=== PATIENT | female | born 1945 | race Caucasian/White ===

== ENCOUNTER → 2016-10-18 | Outpatient (CLI) | payer BC, MEDICARE ==
--- NOTE | 2016-10-18 12:22 | MR ---
EXAMINATION TYPE: MR cervical spine wo/w con DATE OF EXAM: 10/18/2016 10:55 AM COMPARISON: Prior MR cervical spine 28 March 2014, 18 September 2015 HISTORY: meningoma, surgery, neck pain TECHNIQUE: Multiplanar, multisequence images of the cervical spine were acquired utilizing 15 mL intravenous Mul tiHance gadolinium contrast. Diffusion weighted imaging was performed. Cervical vertebral bodies show preserved stable height, alignment, and bone marrow signal. Multilevel spondylosis with associated loss of disc height and signal present at C5-6, C6-C7, endplate discogen ic marrow signal change. Cervical cord signal, cervical medullary junction are unchanged. Postop singh ge at the posterior aspect of C1 is again noted. No recurrent mass or abnormal enhancement. C2-C3: Stable, no significant central canal stenosis. C3-C4: Stable, no significant interval change C4-C5: Small posterior central disc herniation may contact the anterior cervical cord, similar to lisa or exam C5-C6: Posterior extension endplate disc bulge may contact the anterior cervical cord, bilateral fora jerica encroachment is again noted, there is mild central canal stenosis. C6-C7: Posterior broad-based disc bulge, endplate disc complex causes minimal anterior mass effect on the thecal sac. Similar foraminal encroachment prior exam. C7-T1: Essentially stable. IMPRESSION: Stable findings, no recurrent meningioma. Degenerative disc disease.
== END | disposition home or self-care (01) ==
LOC: RADMRIMAIN 10:07
PROVIDERS: ATTEND Neurological Surgery
DX: M50.30 Other cervical disc degeneration, unspecified cervical region (principal)
CPT/HCPCS: 72156; A9577

== ENCOUNTER → 2016-10-24 | Outpatient (CLI) | payer BC, MEDICARE ==
[2016-10-24 12:52] LABS: Calcium 9.7 mg/dL (8.4-10.2); Phosphorous 3.4 mg/dL (2.5-4.5); Potassium 4.7 mmol/L (3.5-5.1)
== END | disposition home or self-care (01) ==
LOC: LABWHC1 12:06
PROVIDERS: ATTEND Pediatrics
DX: E87.6 Hypokalemia (principal); E83.51 Hypocalcemia; E83.42 Hypomagnesemia
CPT/HCPCS: 36415; 80051; 82310; 83735; 84100

== ENCOUNTER → 2016-11-25 | Outpatient (CLI) | payer BC, MEDICARE ==
[2016-11-25 11:54] LABS: Calcium 9.9 mg/dL (8.4-10.2); Potassium 4.6 mmol/L (3.5-5.1)
== END | disposition home or self-care (01) ==
LOC: LABWHC1 10:52
PROVIDERS: ATTEND Pediatrics
DX: E83.51 Hypocalcemia (principal); E83.42 Hypomagnesemia; E87.6 Hypokalemia
CPT/HCPCS: 36415; 80051; 82310; 83735

== ENCOUNTER → 2017-01-07 | Outpatient (CLI) | payer BC, MEDICARE ==
[2017-01-07 11:03] LABS: ALT 31 U/L (9-52); AST 21 U/L (14-36); Alkaline Phosphatase 72 U/L (38-126); Anion Gap 11 mmol/L; Blood Urea Nitrogen 19 mg/dL (7-17); Calcium 9.8 mg/dL (8.4-10.2); Carbon Dioxide 27 mmol/L (22-30); Chloride 107 mmol/L (98-107); Cholesterol 160 mg/dL (<200); Glucose 105 mg/dL (74-99); HDL Cholesterol 94 mg/dL (40-60); Non-African American GFR(MDRD) >60 (>60 ml/min/1.73 sqM); Sodium 145 mmol/L (137-145); Total Protein 6.3 g/dL (6.3-8.2); Triglycerides 160 mg/dL (<150)
== END | disposition home or self-care (01) ==
LOC: LABWHC1 10:08
PROVIDERS: ATTEND Internal Medicine Interventional Cardiology
DX: E78.2 Mixed hyperlipidemia (principal); E87.6 Hypokalemia; E83.42 Hypomagnesemia
CPT/HCPCS: 36415; 80053; 80061; 83735

== ENCOUNTER → 2017-06-11 | Outpatient (CLI) | payer BC, MEDICARE ==
--- NOTE | 2017-06-11 15:32 | CT ---
EXAMINATION TYPE: CT abdomen pelvis w con DATE OF EXAM: 06/11/2017 HISTORY: Pelvic pain and stomach ache x 6 weeks per patient. Unspecified abdominal pain (R 10.9) per order. CT DLP: 1361.00mGycm Automated Exposure Control for Dose Reduction was Utilized. CONTRAST: CT scan of the abdomen and pelvis is performed with IV Contrast, patient injected with 100 mL of Omni paque 300. COMPARISON: CT abdomen and pelvis September 16, 2010 FINDINGS: LUNG BASES: Cardiomegaly is redemonstrated. There is persistent severe left atrial and moderate left ventricular dilatation redemonstrated. There is stable 4 mm nodule in the right lung base on axial im age 16. LIVER/GB: Subcentimeter nodules lung periphery of gallbladder felt to reflect several small polyps. In the right hepatic lobe posterior segment there is 1.5 x 1.4 cm peripheral nodular enhancing mass w ith progressive centripetal filling consistent with hemangioma redemonstrated. Subcentimeter hypodens e lesion right hepatic dome posterior aspect on axial image 13 is stable and benign. PANCREAS: No significant abnormality is seen. SPLEEN: There are several hypodense lesions scattered throughout the spleen that become isodense on d elayed phased images, lesions of uncertain etiology but favored benign. They are not clearly seen on prior noncontrast CT. Somewhat present on May 2010 contrast-enhanced abdominal CT or slightly more prominent in size and number versus this study. Still favor benign process or etiology. ADRENALS: No significant abnormality is seen. KIDNEYS: There are multiple simple appearing cysts scattered throughout the visualized left kidney. T here is a dominant exophytic cyst lower pole level right kidney with lobulation and suspected thin se ptation anteriorly measuring 10.8 x 9.5 cm on axial image 45 redemonstrated. There is bladder prolaps e seen best on coronal image 57 redemonstrated with more inferior extension or prolapse seen on curre nt study. BOWEL: No suspicious small or large bowel dilatation is present. Slightly suspicious lobulated soft tissue directly normal junction is seen on axial image 82, correlation with direct digital rectal exa m advised to rule out mass at this level. Air-contrast level is noted just proximal to this. UTERUS/ADNEXA: Uterus is surgically absent. LYMPH NODES: No greater than 1cm abdominal or pelvic lymph nodes are appreciated. OSSEOUS STRUCTURES: No significant abnormality is seen. OTHER: No significant additional abnormality is seen. IMPRESSION: 1. No bowel obstruction is seen. 2. Note is made of increasing or more prominent bladder prolapse. 3. Attention to rectal anal junction as detailed above.
== END | disposition home or self-care (01) ==
LOC: RADCTMAIN 12:37
PROVIDERS: ATTEND Family Medicine
DX: N81.10 Cystocele, unspecified (principal)
CPT/HCPCS: 74177; Q9967

== ENCOUNTER → 2017-07-14 | Outpatient (CLI) | payer BC, MEDICARE ==
[2017-07-14 10:16] LABS: ALT 43 U/L (9-52); AST 24 U/L (14-36); Alkaline Phosphatase 80 U/L (38-126); Anion Gap 10 mmol/L; Blood Urea Nitrogen 19 mg/dL (7-17); Calcium 9.5 mg/dL (8.4-10.2); Carbon Dioxide 28 mmol/L (22-30); Chloride 106 mmol/L (98-107); Cholesterol 135 mg/dL (<200); Glucose 98 mg/dL (74-99); HDL Cholesterol 79 mg/dL (40-60); Non-African American GFR(MDRD) >60 (>60 ml/min/1.73 sqM); Potassium 3.9 mmol/L (3.5-5.1); Sodium 144 mmol/L (137-145); Total Bilirubin 0.8 mg/dL (0.2-1.3); Total Protein 6.4 g/dL (6.3-8.2)
== END | disposition home or self-care (01) ==
LOC: LABWHC1 09:38
PROVIDERS: ATTEND Internal Medicine Interventional Cardiology
DX: E78.2 Mixed hyperlipidemia (principal); I42.9 Cardiomyopathy, unspecified
CPT/HCPCS: 36415; 80053; 80061; 83735

== ENCOUNTER → 2017-11-03 | Outpatient (CLI) | payer BC, MEDICARE ==
[2017-11-03 12:49] LABS: Blood Urea Nitrogen 20 mg/dL (7-17)
--- NOTE | 2017-11-04 17:58 | MR ---
MRI CERVICAL SPINE: CLINICAL HISTORY: Benign neoplasm of spinal meninges per order. Spinal meningioma. History of prior s urgery. Occasional left-sided neck pain with occasional pain or weakness in both arms per patient. TECHNIQUE: Multiplanar, multisequence imaging of the cervical spine is performed without and with IV contrast, 7 cc of gadolinium was given intravenously. COMPARISON: Prior MRI cervical spine October 18, 2016 FINDINGS: Coronal images redemonstrate levoconvex scoliotic positioning centered in the upper thoraci c spine. Motion artifact degradation is seen particularly on T1 postcontrast sagittal images. Sagitta l images of the cervical spine show the craniocervical junction to appear within normal limits. The cervical and upper thoracic spinal cord remains normal in course, caliber, and signal. Vertebral ali gnment is anatomic. The vertebral body heights are normal. There is mild to moderate disc space madison rowing C5-C6 and C6-C7 levels redemonstrated with small posterior disc herniation is seen at these le vels on sagittal images. The bone marrow signal intensity remains within normal limits. No suspicious enhancement is seen. Postsurgical change posterior C1 level is redemonstrated with pseudomeningocele appearance of the spinal canal at this level. Axial images show the C2-C3 and C3-C4 levels remain within normal limits. Axial images at C4-C5 level redemonstrates small central disc protrusion mildly effacing the anterior thecal sac and axial image 28, there are uncovertebral facet degenerative changes bilaterally but bi lateral neural foramina remain patent. No significant change from prior. Axial images at C5-C6 level broad-based posterior disc protrusion effacing the anterior thecal sac an d causing mild to moderate left and mild right-sided neural foraminal narrowing. No significant buck e from prior study is seen. Axial images at C6-C7 level shows broad-based posterior disc protrusion mildly effacing the anterior thecal sac and causing mild left-sided anterior inferior neural foraminal narrowing. Right-sided neur al foramen is patent. No significant change from prior. Axial images at C7-T1 level are felt within normal limits. IMPRESSION: Multilevel degenerative changes as detailed above without significant change from prior s tudy. No new suspicious enhancing intradural mass identified.
== END | disposition home or self-care (01) ==
LOC: RADMRIMAIN 12:11
PROVIDERS: ATTEND Neurological Surgery
DX: M48.02 Spinal stenosis, cervical region (principal); M50.221 Other cervical disc displacement at C4-C5 level; D32.1 Benign neoplasm of spinal meninges
CPT/HCPCS: 82565; 84520; 72156; 36415; A9581

== ENCOUNTER 2017-12-19 21:52 | Emergency (ER) | payer BC, MEDICARE ==
[2017-12-19] MEDS ORDERED: SILVER NITRATE APPLICATOR 1 EACH STICK..EA. TOPICAL STA (22:23)
[2017-12-19] MEDS ORDERED: OXYMETAZOLINE 0.05% NASL SPRAY 1 SPRAY BOTTLE NASAL STA (22:38)
[2017-12-19 23:05] LABS: Basophils % (A) 0 %; Eosinophils # (A) 0.1 k/uL (0-0.7); Eosinophils % (A) 1 %; HGB 13.8 gm/dL (11.4-16.0); Lymphocytes # (A) 0.6 k/uL (1.0-4.8); Lymphocytes % (A) 10 %; MCH 28.6 pg (25.0-35.0); MCHC 32.1 g/dL (31.0-37.0); Mean Platelet Volume 7.8; Monocytes # (A) 0.3 k/uL (0-1.0); Monocytes % (A) 6 %; Neutrophils # (A) 4.5 k/uL (1.3-7.7); Neutrophils % (A) 81 %; Platelet Count 215 k/uL (150-450); RBC 4.83 m/uL (3.80-5.40); RDW 13.3 % (11.5-15.5); WBC 5.6 k/uL (3.8-10.6)
[2017-12-19 23:19] LABS: Albumin 3.8 g/dL (3.5-5.0); Calcium 9.3 mg/dL (8.4-10.2); Potassium 3.7 mmol/L (3.5-5.1); Total Bilirubin 0.6 mg/dL (0.2-1.3); Total Protein 5.8 g/dL (6.3-8.2)
[2017-12-19 23:40] VITALS: BP 132/87; PULSE 77; RESP 18
--- NOTE | 2017-12-19 23:46 | ED ---
ENT HPI - General Chief complaint: ENT Stated complaint: Nose Bleed Time Seen by Provider: 12/19/17 22:11 Source: patient, family Mode of arrival: wheelchair Limitations: no limitations - History of Present Illness Initial comments: 72-year-old female patient presents to the emergency department today for evaluation of nosebleed. Patient states that the bleeding started approximately 2000 this evening. She states that she has had frequent nosebleeds in the past. States last one was about a week ago. She states that she did have surgery to the left side today to repair a retinal detachment. She is not having any complaints at the eye. She denies any pain to the eye. She states that she has been holding pressure and putting Afrin on a cotton swab and packing in the nose. States she has not been able to get it to stop. She states when she takes the cotton out did blood to sports from the nostril. She denies any dizziness or weakness with this. States she does take Plavix. She denies any headache. Patient denies any recent rash, fever, chills, shortness breath, chest pain, abdominal pain, nausea, vomiting, diarrhea, constipation, back pain, numbness, tingling, hematuria, dysuria, urinary urgency , urinary frequency, visual changes, or any other complaints. - Related Data Home Medications Medication Instructions Recorded Confirmed Cyanocobalamin [Vitamin B-12] 1,000 mcg PO DAILY 07/23/16 12/19/17 L.acidoph,Paracmaycoi, B.lactis 1 cap PO Q48H 07/23/16 12/19/17 [Probiotic] Calcium Carbonate/Vitamin D3 1 tab PO DAILY 09/22/16 12/19/17 [Calcium 600-Vit D3 200 Tablet] Metoprolol Tartrate [Lopressor] 12.5 mg PO BID 12/19/17 12/19/17 Potassium Chloride ER [K-Dur 20] 20 meq PO DAILY 12/19/17 12/19/17 hydrALAZINE HCL 10 mg PO BID 12/19/17 12/19/17 Previous Rx's Medication Instructions Recorded Diphenox-Atrop 2.5-0.025 mg 1 tab PO QID PRN #60 tablet 09/23/16 [Lomotil] Aspirin EC [Ecotrin Low Dose] 81 mg PO DAILY #30 tablet. 09/24/16 Atorvastatin [Lipitor] 40 mg PO HS #30 tab 09/24/16 Clopidogrel [Plavix] 75 mg PO DAILY #30 tab 09/24/16 Losartan [Cozaar] 50 mg PO DAILY #30 tab 09/24/16 Magnesium Oxide [Mag-Ox] 400 mg PO DAILY #30 tablet 09/24/16 Allergies Allergy/AdvReac Type Severity Reaction Status Date / Time No Known Allergies Allergy Verified 12/19/17 22:13 Review of Systems ROS Statement: Those systems with pertinent positive or pertinent negative responses have been documented in the HPI. ROS Other: All systems not noted in ROS Statement are negative. 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 knee replacement History of Any Multi-Drug Resistant Organisms: None Reported Past Surgical History: Hernia Repair, Joint Replacement Additional Past Surgical History / Comment(s): aaa surgery, valve replacement, spinal tumor removed, eye surger 12/2017 Past Anesthesia/Blood Transfusion Reactions: No Reported Reaction Past Psychological History: No Psychological Hx Reported Smoking Status: Never smoker Past Alcohol Use History: Daily Past Drug Use History: None Reported - Past Family History Father Family Medical History: Cancer Mother Family Medical History: Cancer Sister(s) Family Medical History: Cancer General Exam Limitations: no limitations General appearance: alert, in no apparent distress, other (This is a well- developed, well-nourished elderly female patient in no acute distress. Vital signs upon presentation are temperature 97.9F, pulse 74, respirations 16, blood pressure 129/77, pulse ox 99% on room air.) Eye exam: Present: normal appearance, PERRL, EOMI, other (There is a dressing covering the left eye). Absent: scleral icterus, conjunctival injection, periorbital swelling ENT exam: Present: normal exam, normal oropharynx, mucous membranes moist, other (Patient does have bleeding from the right nostril. There does appear to be an anterior bleed.) Respiratory exam: Present: normal lung sounds bilaterally. Absent: respiratory distress, wheezes, rales, rhonchi, stridor Cardiovascular Exam: Present: regular rate, normal rhythm, normal heart sounds. Absent: systolic murmur, diastolic murmur, rubs, gallop, clicks Neurological exam: Present: alert, oriented X3, CN II-XII intact Psychiatric exam: Present: normal affect, normal mood Skin exam: Present: warm, dry, intact, normal color. Absent: rash Course Vital Signs 12/19/17 12/19/17 12/20/17 22:00 23:40 00:04 Temperature 97.9 F 97.7 F Pulse Rate 74 77 Respiratory 16 18 Rate Blood Pressure 129/77 132/87 O2 Sat by Pulse 99 97 Oximetry Medical Decision Making - Medical Decision Making 72-year-old female patient presented to the emergency department today for evaluation of epistaxis. Physical examination did reveal an anterior bleed on the right nare. We did perform cautery with silver nitrate to one area of bleeding. We did instill Afrin and applied manual pressure for approximately 30 minutes. We did have cessation of bleeding. Patient was monitored for an additional 30 minutes with no recurrence of bleeding. Labs reviewed and showed a normal hemoglobin and hematocrit. Coagulation studies were normal. Patient' s vital signs remained stable. I did discuss findings with the patient. We'll discharge her home at this time to follow-up with her primary care physician as well as her ENT specialist. She was instructed to instill nasal saline twice a day and also run a humidifier at home. She is instructed to return here immediately for any new, worsening, or concerning symptoms. She verbalizes understanding and agrees with the plan. - Lab Data Result diagrams: 12/19/17 22:56 12/19/17 22:56 Lab Results 12/19/17 12/19/17 12/19/17 Range/Units 22:56 22:56 22:56 WBC 5.6 (3.8-10.6) k/uL RBC 4.83 (3.80-5.40) m/uL Hgb 13.8 (11.4-16.0) gm/dL Hct 43.0 (34.0-46.0) % MCV 89.0 (80.0-100.0) fL MCH 28.6 (25.0-35.0) pg MCHC 32.1 (31.0-37.0) g/dL RDW 13.3 (11.5-15.5) % Plt Count 215 (150-450) k/uL Neutrophils % 81 % Lymphocytes % 10 % Monocytes % 6 % Eosinophils % 1 % Basophils % 0 % Neutrophils # 4.5 (1.3-7.7) k/uL Lymphocytes # 0.6 L (1.0-4.8) k/uL Monocytes # 0.3 (0-1.0) k/uL Eosinophils # 0.1 (0-0.7) k/uL Basophils # 0.0 (0-0.2) k/uL PT 9.7 (9.0-12.0) sec INR 1.0 (<1.2) APTT 23.6 (22.0-30.0) sec Sodium 141 (137-145) mmol/L Potassium 3.7 (3.5-5.1) mmol/L Chloride 104 (98-107) mmol/L Carbon Dioxide 28 (22-30) mmol/L Anion Gap 9 mmol/L BUN 17 (7-17) mg/dL Creatinine 0.80 (0.52-1.04) mg/dL Est GFR (CKD-EPI)AfAm 84 (>60 ml/min/1.73 sqM) Est GFR (CKD-EPI)NonAf 73 (>60 ml/min/1.73 sqM) Glucose 102 H (74-99) mg/dL Calcium 9.3 (8.4-10.2) mg/dL Total Bilirubin 0.6 (0.2-1.3) mg/dL AST 20 (14-36) U/L ALT 28 (9-52) U/L Alkaline Phosphatase 66 (38-126) U/L Total Protein 5.8 L (6.3-8.2) g/dL Albumin 3.8 (3.5-5.0) g/dL Disposition Clinical Impression: Epistaxis Disposition: HOME SELF-CARE Condition: Good Instructions: Nosebleed (ED) Additional Instructions: If bleeding starts again blow all clots out, instill Afrin, and hold pressure with your fingers for 20 minutes. If bleeding continues beyond this return to the emergency department. Use humidifier and nasal saline to keep nasal passages is moist. Follow-up with ENT Dr. Wright as soon as possible. Return here immediately for any new, worsening, or concerning symptoms. Referrals: Irving Newell DO [Primary Care Provider] - 1-2 days Time of Disposition: 23:46
[2017-12-20 00:05] VITALS: TEMP 97.7
[2017-12-20 00:15] LABS: Partial Thromboplastin Time 23.6 sec (22.0-30.0); Prothrombin Time 9.7 sec (9.0-12.0)
== END 2017-12-20 00:05 | disposition home or self-care (01) ==
LOC: EC 21:52
DX: R04.0 Epistaxis (principal); I10 Essential (primary) hypertension; Z79.899 Other long term (current) drug therapy; Z86.011 Personal history of benign neoplasm of the brain
CPT/HCPCS: 30901; 36415; 80053; 85025; 85610; 85730; 99283

== ENCOUNTER → 2018-01-13 | Outpatient (CLI) | payer BC, MEDICARE ==
[2018-01-13 08:59] LABS: HCT 43.7 % (34.0-46.0); HGB 14.6 gm/dL (11.4-16.0); MCH 29.7 pg (25.0-35.0); MCHC 33.3 g/dL (31.0-37.0); MCV 89.2 fL (80.0-100.0); Mean Platelet Volume 7.1; Platelet Count 227 k/uL (150-450); RDW 13.6 % (11.5-15.5); WBC 5.5 k/uL (3.8-10.6)
[2018-01-13 09:27] LABS: Calcium 9.7 mg/dL (8.4-10.2); Potassium 4.7 mmol/L (3.5-5.1)
== END | disposition home or self-care (01) ==
LOC: LABWHC1 08:15
PROVIDERS: ATTEND Internal Medicine
DX: I42.9 Cardiomyopathy, unspecified (principal)
CPT/HCPCS: 36415; 80048; 85027; 85610

== ENCOUNTER → 2018-05-26 | Outpatient (CLI) | payer MEDICARE, BC ==
[2018-05-26 09:19] LABS: Basophils # (A) 0.1 k/uL (0-0.2); Basophils % (A) 1 %; Eosinophils # (A) 0.2 k/uL (0-0.7); Eosinophils % (A) 4 %; HCT 45.7 % (34.0-46.0); HGB 14.6 gm/dL (11.4-16.0); Lymphocytes # (A) 0.9 k/uL (1.0-4.8); Lymphocytes % (A) 17 %; MCH 28.5 pg (25.0-35.0); MCV 88.9 fL (80.0-100.0); Mean Platelet Volume 6.8; Monocytes # (A) 0.4 k/uL (0-1.0); Monocytes % (A) 7 %; Neutrophils # (A) 3.7 k/uL (1.3-7.7); Neutrophils % (A) 69 %; Platelet Count 220 k/uL (150-450); RBC 5.13 m/uL (3.80-5.40); RDW 14.3 % (11.5-15.5); WBC 5.3 k/uL (3.8-10.6)
[2018-05-26 09:32] LABS: Calcium 9.2 mg/dL (8.4-10.2); Magnesium 2.1 mg/dL (1.6-2.3); Potassium 4.5 mmol/L (3.5-5.1)
== END ==
LOC: LABWHC1 08:27
PROVIDERS: ATTEND Family Medicine
DX: E83.42 Hypomagnesemia (principal)
CPT/HCPCS: 36415; 80048; 83735; 85025

== ENCOUNTER 2018-09-16 20:37 | Emergency (ER) | payer BC, MEDICARE ==
[2018-09-16] MEDS ORDERED: OXYMETAZOLINE 0.05% NASL SPRAY 1 SPRAY BOTTLE NASAL STA (20:58)
[2018-09-16 22:02] VITALS: RESP 18
--- NOTE | 2018-09-16 22:45 | ED ---
ENT HPI - General Chief complaint: ENT Stated complaint: Nose bleedw Time Seen by Provider: 09/16/18 20:50 Source: patient Mode of arrival: wheelchair Limitations: no limitations - History of Present Illness Initial comments: 73-year-old female patient presents the emergency department today for evaluation for epistaxis. Patient states she's been having bleeding from the right nostril since around 5:30 this afternoon. Patient states she has had issues with bleeding from the side frequently in the past. Approximately every few months should develop a nosebleed. Patient states that every day this week she has been having minor bleeding with just a few drops on the toilet paper daily. States that she has had an area cauterized in her nose. Patient denies any headache or facial pressure. She denies any dizziness or weakness. States that she does take a baby aspirin daily for artificial heart valve. Patient denies any recent rash, fever, chills, shortness breath, chest pain, abdominal pain, nausea, vomiting, diarrhea, constipation, back pain, numbness, tingling, dizziness, weakness, hematuria, dysuria, urinary urgency, urinary frequency, headache, visual changes, or any other complaints. - Related Data Home Medications Medication Instructions Recorded Confirmed Calcium Carbonate/Vitamin D3 1 tab PO DAILY 09/22/16 09/16/18 [Calcium 600-Vit D3 200 Tablet] Potassium Chloride ER [K-Dur 20] 20 meq PO DAILY 12/19/17 09/16/18 Furosemide [Lasix] 20 mg PO DAILY PRN 09/16/18 09/16/18 Metoprolol Tartrate [Lopressor] 50 mg PO BID 09/16/18 09/16/18 Sacubitril/Valsartan [Entresto 24 1 tab PO BID 09/16/18 09/16/18 mg-26 mg Tablet] Vitamin B Complex 1 cap PO DAILY 09/16/18 09/16/18 Previous Rx's Medication Instructions Recorded Aspirin EC [Ecotrin Low Dose] 81 mg PO DAILY #30 tablet. 09/24/16 Atorvastatin [Lipitor] 40 mg PO HS #30 tab 09/24/16 Magnesium Oxide [Mag-Ox] 400 mg PO DAILY #30 tablet 09/24/16 Allergies Allergy/AdvReac Type Severity Reaction Status Date / Time adhesive Allergy Rash/Hives Verified 09/16/18 21:15 Review of Systems ROS Statement: Those systems with pertinent positive or pertinent negative responses have been documented in the HPI. ROS Other: All systems not noted in ROS Statement are negative. 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 knee replacement History of Any Multi-Drug Resistant Organisms: None Reported Past Surgical History: Hernia Repair, Joint Replacement, Pacemaker Additional Past Surgical History / Comment(s): aaa surgery, valve replacement, spinal tumor removed, eye surger 12/2017 Past Anesthesia/Blood Transfusion Reactions: No Reported Reaction Past Psychological History: No Psychological Hx Reported Smoking Status: Never smoker Past Alcohol Use History: Daily Past Drug Use History: None Reported - Past Family History Father Family Medical History: Cancer Mother Family Medical History: Cancer Sister(s) Family Medical History: Cancer General Exam Limitations: no limitations General appearance: alert, in no apparent distress, other (This is a well- developed, well-nourished elderly female patient in no acute distress. Vital signs upon presentation are temperature 97.5F, pulse 61, respirations 19, blood pressure 115/76, pulse ox 96% on room air.) Eye exam: Present: normal appearance, PERRL, EOMI. Absent: scleral icterus, conjunctival injection, periorbital swelling ENT exam: Present: normal oropharynx, mucous membranes moist, TM's normal bilaterally, other (Patient has bright red bleeding from the right nostril. Do not see any active areas of bleeding with visual inspection.). Absent: normal exam Respiratory exam: Present: normal lung sounds bilaterally. Absent: respiratory distress, wheezes, rales, rhonchi, stridor Cardiovascular Exam: Present: regular rate, normal rhythm, normal heart sounds. Absent: systolic murmur, diastolic murmur, rubs, gallop, clicks GI/Abdominal exam: Present: soft, normal bowel sounds. Absent: distended, tenderness, guarding, rebound, rigid Neurological exam: Present: alert, oriented X3, CN II-XII intact Psychiatric exam: Present: normal affect, normal mood Skin exam: Present: warm, dry, intact, normal color. Absent: rash Course Vital Signs 09/16/18 09/16/18 09/16/18 20:40 22:01 22:59 Temperature 97.5 F L 96.8 F L Pulse Rate 61 85 76 Respiratory 19 18 18 Rate Blood Pressure 115/76 104/89 104/73 O2 Sat by Pulse 96 94 L 95 Oximetry Medical Decision Making - Medical Decision Making 73-year-old female patient presented to the emergency department today for evaluation of right-sided nasal bleeding. Physical examination did reveal bleeding from the right air. Was unable to identify area of active bleeding. Was able to have patient blow nose, instill Afrin, inserted gauze soaked with Afrin and applied pressure for 20 minutes. We were able to get the bleeding to stop. Patient did ambulate to the department, she had no recurrence of bleeding. Patient did report having a dark bowel movement while here, we did test this for blood and was positive. Patient vital signs stable she is having no dizziness or weakness. No abdominal pain. She does prefer to go home rather than have labs performed. She is instructed to follow-up with her primary care physician as soon as possible for further evaluation of the GI bleeding. She is instructed to follow-up with her ears, nose, and throat specialist for recheck as soon as possible. Return parameters were discussed in detail. She verbalizes understanding and agrees with this plan. - Lab Data Lab Results 09/16/18 Range/Units 22:05 Stool Occult Blood Positive H (Negative) Disposition Clinical Impression: Epistaxis, GI bleed Disposition: HOME SELF-CARE Condition: Good Instructions: Gastrointestinal Bleeding (ED), Nosebleed (ED) Additional Instructions: Use the Afrin as directed if you nose starts bleeding again. Call your chief digital officer tomorrow to receive instruction regarding aspirin use. Call your primary care physician and inform them of the GI bleed and have evaluation as soon as possible. Ears, nose, throat specialist for further evaluation of the nasal bleeding. Return to the emergency department immediately for any new, worsening, or concerning symptoms. Is patient prescribed a controlled substance at d/c from ED?: No Referrals: Irving Newell DO [Primary Care Provider] - 1-2 days Red Wright DO [Doctor of Osteopathic Medicine] - 1-2 days Time of Disposition: 22:45
[2018-09-16 23:00] VITALS: BP 104/73; PULSE 76; TEMP 96.8
== END 2018-09-16 23:00 | disposition home or self-care (01) ==
LOC: EC 20:37
DX: R04.0 Epistaxis (principal); K92.2 Gastrointestinal hemorrhage, unspecified; I10 Essential (primary) hypertension; Z95.2 Presence of prosthetic heart valve; Z96.651 Presence of right artificial knee joint; Z95.0 Presence of cardiac pacemaker; Z79.899 Other long term (current) drug therapy; Z91.048 Other nonmedicinal substance allergy status
CPT/HCPCS: 36415; 82272; 99283

== ENCOUNTER → 2018-09-22 | Outpatient (CLI) | payer BC, MEDICARE ==
[2018-09-22 15:03] LABS: Basophils % (A) 1 %; Eosinophils # (A) 0.2 k/uL (0-0.7); Eosinophils % (A) 4 %; HCT 40.8 % (34.0-46.0); HGB 12.8 gm/dL (11.4-16.0); Lymphocytes # (A) 0.7 k/uL (1.0-4.8); Lymphocytes % (A) 14 %; MCH 28.8 pg (25.0-35.0); MCHC 31.4 g/dL (31.0-37.0); MCV 91.7 fL (80.0-100.0); Monocytes # (A) 0.3 k/uL (0-1.0); Monocytes % (A) 6 %; Neutrophils # (A) 3.8 k/uL (1.3-7.7); Neutrophils % (A) 74 %; Platelet Count 233 k/uL (150-450); RBC 4.45 m/uL (3.80-5.40); RDW 14.2 % (11.5-15.5); WBC 5.1 k/uL (3.8-10.6)
[2018-09-22 15:04] LABS: Prothrombin Time 10.3 sec (9.0-12.0)
== END | disposition home or self-care (01) ==
LOC: LABWHC1 14:13
PROVIDERS: ATTEND Otolaryngology
DX: R04.0 Epistaxis (principal)
CPT/HCPCS: 36415; 85025; 85610

== ENCOUNTER → 2019-02-18 | Outpatient (CLI) | payer BC, MEDICARE ==
[2019-02-18 13:44] LABS: Basophils # (A) 0.1 k/uL (0-0.2); Basophils % (A) 1 %; Eosinophils # (A) 0.3 k/uL (0-0.7); Eosinophils % (A) 6 %; HCT 48.2 % (34.0-46.0); HGB 15.2 gm/dL (11.4-16.0); Lymphocytes # (A) 0.8 k/uL (1.0-4.8); Lymphocytes % (A) 18 %; MCHC 31.6 g/dL (31.0-37.0); MCV 91.7 fL (80.0-100.0); Mean Platelet Volume 6.8; Monocytes # (A) 0.2 k/uL (0-1.0); Monocytes % (A) 5 %; Neutrophils % (A) 68 %; Platelet Count 213 k/uL (150-450); RBC 5.26 m/uL (3.80-5.40); RDW 14.7 % (11.5-15.5); WBC 4.5 k/uL (3.8-10.6)
[2019-02-18 18:37] LABS: Anion Gap 6.6 mmol/L (4.00-12.00); Calcium 9.3 mg/dL (8.7-10.3); Carbon Dioxide 29.4 mmol/L (21.6-31.8); Potassium 3.9 mmol/L (3.5-5.5)
== END | disposition home or self-care (01) ==
LOC: LABWHC1 12:11
PROVIDERS: ATTEND Family Medicine
DX: E83.42 Hypomagnesemia (principal)
CPT/HCPCS: 36415; 80048; 83735; 85025

== ENCOUNTER 2019-10-31 00:02 | Emergency (ER) | payer BC, MEDICARE ==
[2019-10-31] MEDS ORDERED: OXYMETAZOLINE 0.05% NASL SPRAY 1 SPRAY BOTTLE NASAL STA (00:36)
--- NOTE | 2019-10-31 01:48 | ED ---
General Adult HPI - General Chief complaint: ENT Stated complaint: Nose Bleed Time Seen by Provider: 10/31/19 00:32 Source: patient, family Mode of arrival: wheelchair Limitations: no limitations - History of Present Illness Initial comments: 74 year-old female patient presents to the emergency department today for evaluation of nosebleed. Patient states that she is having bleeding from the right nostril for the last several hours. Patient states that she did try to apply pressure and used Afrin at home without relief. Patient states that she does have history of nosebleeds from the site. States that she's had cautery in the past. Patient takes aspirin but denies any other blood thinning medications. Denies any injury to the nose. Denies any dizziness or weakness. Patient denies any recent rash, fever, chills, shortness breath, chest pain, abdominal pain, nausea, vomiting, diarrhea, constipation, back pain, numbness, tingling, dizziness, weakness, hematuria, dysuria, urinary urgency, urinary frequency, headache, visual changes, or any other complaints. - Related Data Home Medications Medication Instructions Recorded Confirmed Calcium Carbonate/Vitamin D3 1 tab PO DAILY 09/22/16 09/16/18 [Calcium 600-Vit D3 200 Tablet] Potassium Chloride ER [K-Dur 20] 20 meq PO DAILY 12/19/17 09/16/18 Furosemide [Lasix] 20 mg PO DAILY PRN 09/16/18 09/16/18 Metoprolol Tartrate [Lopressor] 50 mg PO BID 09/16/18 09/16/18 Sacubitril/Valsartan [Entresto 24 1 tab PO BID 09/16/18 09/16/18 mg-26 mg Tablet] Vitamin B Complex 1 cap PO DAILY 09/16/18 09/16/18 Previous Rx's Medication Instructions Recorded Aspirin EC [Ecotrin Low Dose] 81 mg PO DAILY #30 tablet. 09/24/16 Atorvastatin [Lipitor] 40 mg PO HS #30 tab 09/24/16 Magnesium Oxide [Mag-Ox] 400 mg PO DAILY #30 tablet 09/24/16 Allergies Allergy/AdvReac Type Severity Reaction Status Date / Time adhesive Allergy Rash/Hives Verified 10/31/19 00:19 Review of Systems ROS Statement: Those systems with pertinent positive or pertinent negative responses have been documented in the HPI. ROS Other: All systems not noted in ROS Statement are negative. Past Medical History Past Medical History: Eye Disorder, Hyperlipidemia, Hypertension Additional Past Medical History / Comment(s): recent intestinal infection(tx with Rx), osteopenia, open heart 12/16 aortic valve replacement, meningoma 06/2014, total R. knee replacement History of Any Multi-Drug Resistant Organisms: None Reported Past Surgical History: AICD, Hernia Repair, Joint Replacement, Pacemaker Additional Past Surgical History / Comment(s): aaa surgery, valve replacement, spinal tumor removed, eye surger 12/2017 Past Anesthesia/Blood Transfusion Reactions: No Reported Reaction Past Psychological History: No Psychological Hx Reported Smoking Status: Never smoker Past Alcohol Use History: Daily Past Drug Use History: None Reported - Past Family History Father Family Medical History: Cancer Mother Family Medical History: Cancer Sister(s) Family Medical History: Cancer General Exam Limitations: no limitations General appearance: alert, in no apparent distress, other (Physical well- developed, well-nourished elderly female patient in no acute distress. Vital signs upon presentation are temperature 97.6F, pulse 80, respirations 16, blood pressure 134/86, pulse ox 96% on room air.) ENT exam: Present: mucous membranes moist, TM's normal bilaterally, other (Bleeding from the right nostril). Absent: normal exam Respiratory exam: Present: normal lung sounds bilaterally. Absent: respiratory distress, wheezes, rales, rhonchi, stridor Cardiovascular Exam: Present: regular rate, normal rhythm, normal heart sounds. Absent: systolic murmur, diastolic murmur, rubs, gallop, clicks Neurological exam: Present: alert, oriented X3, CN II-XII intact Psychiatric exam: Present: normal affect, normal mood Skin exam: Present: warm, dry, intact, normal color. Absent: rash Course Vital Signs 10/31/19 10/31/19 00:14 02:06 Temperature 97.6 F 98 F Pulse Rate 80 70 Respiratory 16 18 Rate Blood Pressure 134/86 131/80 O2 Sat by Pulse 96 97 Oximetry Medical Decision Making - Medical Decision Making 74 year-old female patient presents to the emergency department today for evaluation of nosebleed. Physical examination did reveal bleeding from the right nostril. Vital signs are stable. Did have patient blow all clots out of nose, sprayed with afrin, inserted gauze soaked in afrin, applied pressure for 20 minutes. Upon re-evaluation the bleeding had stopped. She did ambulate in the department, no recurrence of bleeding. She will be discharged to follow up with her ENT specialist as soon as possible. She is educated regarding epistaxis management at home. She is instructed to follow-up with her primary care physician for recheck in 1-2 days. Return parameters were discussed in detail. She verbalizes understanding and agrees with this plan. Disposition Clinical Impression: Epistaxis Disposition: HOME SELF-CARE Condition: Good Instructions (If sedation given, give patient instructions): Nosebleed (ED) Additional Instructions: Use Afrin as directed. Follow-up with ENT specialist for further evaluation. Return to the emergency department immediately for any new, worsening, or concerning symptoms. Is patient prescribed a controlled substance at d/c from ED?: No Referrals: Irving Newell DO [Primary Care Provider] - 1-2 days Time of Disposition: 01:48
[2019-10-31 02:07] VITALS: BP 131/80; PULSE 70; RESP 18; TEMP 98
[2019-10-31] MEDS ORDERED: OXYMETAZOLINE 0.05% NASL SPRAY 1 SPRAY BOTTLE ONE (09:34)
== END 2019-10-31 02:07 | disposition home or self-care (01) ==
LOC: EC 00:02
DX: R04.0 Epistaxis (principal); I10 Essential (primary) hypertension; Z91.048 Other nonmedicinal substance allergy status; Z79.82 Long term (current) use of aspirin; Z79.899 Other long term (current) drug therapy
CPT/HCPCS: 30901; 99283

== ENCOUNTER → 2020-05-19 | Outpatient (CLI) | payer BC, MEDICARE ==
--- NOTE | 2020-05-19 11:32 | US ---
EXAMINATION TYPE: US abdomen complete DATE OF EXAM: 05/19/2020 COMPARISON: 06/11/2017 CT CLINICAL HISTORY: R19.00 Intra-abdominal/pelvic swelling/mass/lump. EXAM MEASUREMENTS: Liver Length: 12.6 cm Gallbladder Wall: 0.1 cm CBD: 0.6 cm Spleen: 9.6 cm Right Kidney: 10.5 x 4.9 x 4.1 cm Left Kidney: 9.7 x 4.5 x 3.9 cm Pancreas: Tail obscured by overlying bowel gas, visualized portions wnl Liver: Discrete hypoechoic area visualized measuring 1.4 x 1.1 x 0.9 cm Gallbladder: Multiple possible polyps visualized, largest measuring 1.0 cm Evidence for sonographic Lopez's sign: No CBD: wnl Spleen: Heterogeneous Right Kidney: Large cystic area visualized measuring 10cm. This area correlates to the patient's pal pable area RLQ. Hypoechoic, solid appearing area upper pole measuring 2.8 x 2.6 x 2.8 cm Left Kidney: Cystic area visualized 7.5 x 4.2 x 7.3 cm Upper IVC: wnl Abd Aorta: Atherosclerotic changes visualized, no sonographic evidence for AAA IMPRESSION: 1. Hypoechoic 1.4 cm nodule within the liver. 2. multiple gallbladder polyps. 3. There is a solid 2.8 cm mass involving the right kidney. CT scan of the abdomen and pelvis recomme nded. 4. Nonspecific heterogeneous pattern of the spleen.
== END | disposition home or self-care (01) ==
LOC: RADUSWWP 10:18
PROVIDERS: ATTEND Internal Medicine Gastroenterology
DX: K82.4 Cholesterolosis of gallbladder (principal); N28.89 Other specified disorders of kidney and ureter; K76.89 Other specified diseases of liver
CPT/HCPCS: 76700

== ENCOUNTER 2020-10-18 12:32 | Day surgery (SDC) | payer BC, MEDICARE ==
[2020-10-18 13:29] VITALS: TEMP 97.8
--- NOTE | 2020-10-18 14:22 | US ---
ULTRASOUND GUIDED FNA THYROID BIOPSY: CLINICAL HISTORY: Right thyroid nodule FINDINGS: The procedure was explained to the patient. The risks, complications, benefits and alternatives were discussed and any questions were answered. Informed consent was obtained. Patient was placed supin e on the ultrasound table and prepped and draped in the usual sterile fashion. Utilizing a 25 gauge needle, five passes were made into the requested right thyroid nodule. Patient was stable throughout the procedure. Pathology is pending. All elements of maximal barrier technique were utilized. IMPRESSION: 1. Successful ultrasound guided FNA thyroid biopsy.
[2020-10-18 14:53] VITALS: BP 132/83; PULSE 62; RESP 18
== END 2020-10-18 14:20 | disposition home or self-care (01) ==
LOC: RADPROMAIN 12:32
PROVIDERS: ATTEND Family Medicine
DX: E04.1 Nontoxic single thyroid nodule (principal); Z79.82 Long term (current) use of aspirin
CPT/HCPCS: 10005; 88173; 88305

== ENCOUNTER → 2021-02-20 | Outpatient (CLI) | payer BC, MEDICARE ==
[2021-02-21 07:23] LABS: African American GFR (CKD) 62.9 (60.0-200.0); Anion Gap 13.7 mmol/L (4.00-12.00); Calcium 10.6 mg/dL (8.7-10.3); Carbon Dioxide 22.3 mmol/L (21.6-31.8); Magnesium 2.3 mg/dL (1.5-2.4); Non-African American GFR(CKD) 54.3 (60.0-200.0); Potassium 4.6 mmol/L (3.5-5.5)
== END | disposition home or self-care (01) ==
LOC: LABWHC1 14:29
PROVIDERS: ATTEND Internal Medicine
DX: I50.22 Chronic systolic (congestive) heart failure (principal)
CPT/HCPCS: 36415; 80048; 83735; 83880

== ENCOUNTER → 2021-03-02 | Outpatient (CLI) | payer BC, MEDICARE ==
[2021-03-03 00:15] LABS: African American GFR (CKD) 81.8 (60.0-200.0); Anion Gap 6.6 mmol/L (4.00-12.00); Calcium 9.6 mg/dL (8.7-10.3); Carbon Dioxide 28.4 mmol/L (21.6-31.8); Non-African American GFR(CKD) 70.6 (60.0-200.0); Potassium 4.8 mmol/L (3.5-5.5)
== END | disposition home or self-care (01) ==
LOC: LABWHC1 15:40
PROVIDERS: ATTEND Internal Medicine
DX: I50.22 Chronic systolic (congestive) heart failure (principal)
CPT/HCPCS: 36415; 80048; 83880

== ENCOUNTER → 2021-03-19 | Outpatient (CLI) | payer BC, MEDICARE ==
[2021-03-20 01:56] LABS: African American GFR (CKD) 62.5 (60.0-200.0); Anion Gap 5.3 mmol/L (4.00-12.00); Calcium 10.4 mg/dL (8.7-10.3); Carbon Dioxide 26.7 mmol/L (21.6-31.8); Non-African American GFR(CKD) 53.9 (60.0-200.0); Potassium 4.6 mmol/L (3.5-5.5)
== END | disposition home or self-care (01) ==
LOC: LABWHC1 15:39
PROVIDERS: ATTEND Internal Medicine
DX: I50.22 Chronic systolic (congestive) heart failure (principal); E87.5 Hyperkalemia
CPT/HCPCS: 36415; 80048

== ENCOUNTER → 2021-09-04 | Outpatient (CLI) | payer BC, MEDICARE ==
[2021-09-04 20:22] LABS: Anion Gap 12.1 mmol/L (10.00-18.00); BUN/Creat Ratio 28.22 Ratio (12.00-20.00); Blood Urea Nitrogen 25.4 mg/dL (9.0-27.0); Calcium 9.9 mg/dL (8.7-10.3); Carbon Dioxide 27.9 mmol/L (20.0-27.5); Magnesium 2.3 mg/dL (1.5-2.4); Non-African American GFR(CKD) 61.2 (60.0-200.0); Potassium 4.4 mmol/L (3.5-5.5)
== END | disposition home or self-care (01) ==
LOC: LABWHC1 11:35
PROVIDERS: ATTEND Internal Medicine
DX: I50.22 Chronic systolic (congestive) heart failure (principal); R05.9 Cough, unspecified
CPT/HCPCS: 36415; 80048; 82306; 83735; 83880; 84630

== ENCOUNTER → 2021-11-13 | Outpatient (CLI) | payer BC, MEDICARE ==
[2021-11-14 00:04] LABS: African American GFR (CKD) 62.5 (60.0-200.0); Anion Gap 10.2 mmol/L (10.00-18.00); BUN/Creat Ratio 36.1 Ratio (12.00-20.00); Blood Urea Nitrogen 36.1 mg/dL (9.0-27.0); Calcium 10.3 mg/dL (8.7-10.3); Carbon Dioxide 28.8 mmol/L (20.0-27.5); Non-African American GFR(CKD) 53.9 (60.0-200.0); Potassium 4.7 mmol/L (3.5-5.5)
== END | disposition home or self-care (01) ==
LOC: LABWHC1 14:31
PROVIDERS: ATTEND Internal Medicine Advanced Heart Failure and Transplant Cardiology
DX: I50.22 Chronic systolic (congestive) heart failure (principal)
CPT/HCPCS: 36415; 80048; 83880

== ENCOUNTER → 2022-01-04 | Outpatient (CLI) | payer BC, MEDICARE ==
[2022-01-04 22:37] LABS: African American GFR (CKD) 59.6 (60.0-200.0); Anion Gap 14.2 mmol/L (10.00-18.00); BUN/Creat Ratio 28.85 Ratio (12.00-20.00); Calcium 9.6 mg/dL (8.7-10.3); Carbon Dioxide 29.6 mmol/L (20.0-27.5); Non-African American GFR(CKD) 51.4 (60.0-200.0); Potassium 4.1 mmol/L (3.5-5.5)
== END | disposition home or self-care (01) ==
LOC: LABWHC1 15:03
PROVIDERS: ATTEND Nurse Practitioner
DX: I42.0 Dilated cardiomyopathy (principal); E78.5 Hyperlipidemia, unspecified; I35.1 Nonrheumatic aortic (valve) insufficiency; T82.837A Hemorrhage due to cardiac prosthetic devices, implants and grafts, initial encounter
CPT/HCPCS: 36415; 80048; 83880

== ENCOUNTER → 2022-02-14 | Outpatient (CLI) | payer BC, MEDICARE ==
[2022-02-14 19:29] LABS: African American GFR (CKD) 42.7 (60.0-200.0); Anion Gap 10.6 mmol/L (10.00-18.00); BUN/Creat Ratio 25.18 Ratio (12.00-20.00); Blood Urea Nitrogen 34.5 mg/dL (9.0-27.0); Calcium 9.8 mg/dL (8.7-10.3); Non-African American GFR(CKD) 36.9 (60.0-200.0); Potassium 3.7 mmol/L (3.5-5.5)
== END | disposition home or self-care (01) ==
LOC: LABWHC1 10:32
PROVIDERS: ATTEND Internal Medicine Advanced Heart Failure and Transplant Cardiology
DX: I50.23 Acute on chronic systolic (congestive) heart failure (principal); I42.8 Other cardiomyopathies
CPT/HCPCS: 36415; 80048; 83880

== ENCOUNTER → 2022-03-26 | Outpatient (CLI) | payer BC, MEDICARE ==
--- NOTE | 2022-03-26 12:45 | CT ---
EXAMINATION TYPE: CT ChestAbdPelvis w con DATE OF EXAM: 03/26/2022 COMPARISON: CT dated 06/11/2017 HISTORY: History of lung cancer. Last radiation therapy in January 2021. Hiatal hernia repair. CT DLP: 557 mGycm Automated exposure control for dose reduction was used. CONTRAST: CT scan of the chest, abdomen and pelvis is performed with Oral Contrast and with IV Contrast, patien t injected with 80 mL of Isovue 300. FINDINGS: LUNGS: Left hilar partially calcified suspicious lesion measuring 3 x 3.6 cm. Collapse of the superio r medial aspect of the left lung likely due to obstruction by the left hilar mass. Loss of volume of the left lung which could be related to previous surgery. Cardiomediastinal shift to the left side. T hick atelectasis seen at the inferior aspect of the left lung. Minimal fibrotic changes and reticulat ion seen in the posterior aspect of the right lung base. Stable 5 mm nodule at the posterior aspect o f the right lung base. Grossly unremarkable remainder of the right lung. Patent trachea and right michelle n bronchus. Minimal left pleural effusion. MEDIASTINUM: Cardiomegaly, please correlate with echocardiographic results. Markedly dilated pulmonar y trunk measuring up to 4.1 cm. Coronary and arterial atherosclerotic calcifications. 9 mm subcarinal lymph node. No other pathologically enlarged lymph nodes in the chest. OTHER: Enlarged heterogeneous right thyroid lobe, please correlate with thyroid ultrasound results. Stimulator device is seen along the inferior aspect of the left lateral chest wall. Diffuse osteopeni a. Sternotomy wire sutures. LIVER/GB: Questionable millimetric polyps within the gallbladder, please correlate with elective ultr asound results. No definite intrahepatic focal lesion. PANCREAS: No significant abnormality is seen. SPLEEN: Multiple tiny splenic hypodensities, nonspecific and appreciated previously. Further ultrasou nd or MRI assessment can be considered. ADRENALS: No significant abnormality is seen. KIDNEYS: Suspicious right medial renal lesion measuring 19 mm, stable in size yet of reduced density/ enhancement as compared to the previous CT scan. Multiple varying sized bilateral renal cysts without suspicious features. BOWEL: Unremarkable stomach, duodenum and small bowel. Large left inguinal hernia containing large p ortion of the colon without evidence of colonic obstruction. REPRODUCTIVE ORGANS: Previous hysterectomy. No gross adnexal mass. LYMPH NODES: No greater than 1 cm abdominal or pelvic lymph nodes are appreciated. OSSEOUS STRUCTURES: Grade 1 anterolisthesis of L4 over L5 and L5 over S1. No aggressive bone lesion. OTHER: Arterial atherosclerotic calcifications. No sizable ascites. Small right fat-containing inguin al hernia. IMPRESSION: 1. Left hilar partially calcified suspicious lesion which could represent local tumor recurrence or m alignant lymph node. Recommend correlation with PET scan results. It causes obstruction and collapse of the superior aspect of the left lung. 2. No evidence of metastatic disease seen in the chest, abdomen or the pelvis otherwise. 3. Redemonstration of the suspicious lesion on the medial aspect of the right kidney, similar in size yet of reduced enhancement/density as compared to the previous CT scan. RCC cannot be excluded. Othe r findings and recommendations as detailed above.
== END | disposition home or self-care (01) ==
LOC: RADCTMAIN 09:37
PROVIDERS: ATTEND Student in an Organized Health Care Education/Training Program
DX: R19.00 Intra-abdominal and pelvic swelling, mass and lump, unspecified site (principal); Z85.118 Personal history of other malignant neoplasm of bronchus and lung
CPT/HCPCS: 82565; 84520; 71260; 74177; 36415; Q9967 ×2

== ENCOUNTER → 2022-05-23 | Outpatient (CLI) | payer BC, MEDICARE ==
[2022-05-23 11:36] LABS: African American GFR (CKD) 51 (>60 ml/min/1.73 sqM); Anion Gap 7 mmol/L; Blood Urea Nitrogen 31 mg/dL (7-17); Calcium 9.6 mg/dL (8.4-10.2); Carbon Dioxide 34 mmol/L (22-30); Chloride 97 mmol/L (98-107); Glucose 110 mg/dL (74-99); Non-African American GFR(CKD) 44 (>60 ml/min/1.73 sqM); Potassium 4.4 mmol/L (3.5-5.1); Sodium 138 mmol/L (137-145)
== END | disposition home or self-care (01) ==
LOC: LABWHC1 10:54
PROVIDERS: ATTEND Internal Medicine Advanced Heart Failure and Transplant Cardiology
DX: I42.8 Other cardiomyopathies (principal); I50.9 Heart failure, unspecified
CPT/HCPCS: 36415; 80048; 83880

== ENCOUNTER → 2022-08-27 | Outpatient (CLI) | payer BC, MEDICARE ==
[2022-08-27 19:02] LABS: African American GFR (CKD) 45.2 (60.0-200.0); Anion Gap 9.6 mmol/L (10.00-18.00); BUN/Creat Ratio 22.85 Ratio (12.00-20.00); Blood Urea Nitrogen 29.7 mg/dL (9.0-27.0); Calcium 10.3 mg/dL (8.7-10.3); Carbon Dioxide 31.4 mmol/L (20.0-27.5); Potassium 4.1 mmol/L (3.5-5.5)
== END | disposition home or self-care (01) ==
LOC: LABWHC1 10:26
PROVIDERS: ATTEND Internal Medicine
DX: I25.10 Atherosclerotic heart disease of native coronary artery without angina pectoris (principal); I10 Essential (primary) hypertension
CPT/HCPCS: 36415; 80048; 83880

== ENCOUNTER → 2022-09-17 | Outpatient (CLI) | payer BC, MEDICARE ==
[2022-09-17 15:37] LABS: African American GFR (CKD) 49.3 (60.0-200.0); Anion Gap 10.3 mmol/L (10.00-18.00); Blood Urea Nitrogen 24.2 mg/dL (9.0-27.0); Calcium 9.5 mg/dL (8.7-10.3); Carbon Dioxide 31.1 mmol/L (20.0-27.5); Non-African American GFR(CKD) 42.5 (60.0-200.0); Potassium 3.9 mmol/L (3.5-5.5)
== END | disposition home or self-care (01) ==
LOC: LABWHC1 09:40
PROVIDERS: ATTEND Internal Medicine Advanced Heart Failure and Transplant Cardiology
DX: I42.0 Dilated cardiomyopathy (principal); I42.8 Other cardiomyopathies; I50.9 Heart failure, unspecified; I51.9 Heart disease, unspecified
CPT/HCPCS: 36415; 80048; 83880